=== PATIENT | male | born 1980 | race Caucasian/White ===

== ENCOUNTER 2023-02-08 17:00 | Outpatient (CLI) | payer BC | END 2023-02-08 17:01 | disposition home or self-care (01) | LOC: SLEEPLAB 17:00 | PROVIDERS: ATTEND Student in an Organized Health Care Education/Training Program | DX: G47.61 Periodic limb movement disorder (principal); G47.9 Sleep disorder, unspecified; R53.83 Other fatigue; F41.9 Anxiety disorder, unspecified; R06.83 Snoring; J30.2 Other seasonal allergic rhinitis | CPT/HCPCS: 95810 ==

== ENCOUNTER 2025-01-18 16:03 | Outpatient (CLI) | payer BC | END 2025-01-18 16:04 | disposition home or self-care (01) | LOC: SCSRAD 16:03 | PROVIDERS: ATTEND Family Medicine | DX: M25.561 Pain in right knee (principal) ==